=== PATIENT | female | born 1970 | race Caucasian/White ===

== ENCOUNTER → 2016-09-05 | Outpatient (CLI) | payer BC ==
[~2016-09-05] MED LIST: BCP PO; DOCU100C37 PO; HYDR-3816 PO; IBUP-1773 PO; SIME80TA16 PO; ZOLP10TA PO
--- NOTE | 2016-09-05 13:08 | Diagnostic Imaging Report ---
EXAMINATION: Transabdominal and transvaginal pelvic ultrasound. INDICATION: Menorrhagia. FINDINGS: The uterus is 6.9 x 5.3 x 4.5 cm. The myometrium is heterogenous with no discrete mass. The myometrium is not well seen with areas of fluid noted focally. The approximate measurement of the endometrium is 1.3 cm. The adnexa are obscured by bowel gas. IMPRESSION: Focal areas of fluid are seen in the endometrium which is not well visualized on this exam. These could be related to blood clots. An underlying endometrial polyp or malignancy is perhaps less likely but cannot be entirely excluded based on this exam. Also, significant heterogeneity in the myometrium may relate to fibroids without a discrete visible mass or adenomyosis. Correlate clinically. Dictated by: Dictated on workstation # [id number]
== END ==
LOC: RAD 09:25
PROVIDERS: ATTEND Nurse Practitioner
DX: N92.0 Excessive and frequent menstruation with regular cycle (principal); N93.8 Other specified abnormal uterine and vaginal bleeding; N94.6 Dysmenorrhea, unspecified
CPT/HCPCS: 76830; 76856

== ENCOUNTER → 2016-09-19 | Outpatient (CLI) | payer BC ==
--- NOTE | 2016-09-19 13:51 | Diagnostic Imaging Report ---
Bilateral screening mammogram The current study was also evaluated with a Computer Aided Detection (CAD) system. INDICATION: Screening. No current complaints stated on the questionnaire. COMPARISON: 09/18/2015. FINDINGS: The breasts are composed of heterogeneously dense parenchyma which may decrease mammographic sensitivity. There are benign-appearing calcifications noted in both breasts, stable from prior exams. A central right breast nodule with well-circumscribed margins, stable from multiple prior exams, is again noted without significant change compatible with benign etiology. Allowing for technique and positional differences, no suspicious change is seen. IMPRESSION: No significant change. ACR BI-RADS Category 2: Benign findings. Result letter will be mailed to the patient. Note: At least 10% of breast cancer is not imaged by mammography. Dictated by: Dictated on workstation # [id number]
== END ==
LOC: RAD 07:25
PROVIDERS: ATTEND Nurse Practitioner
DX: Z12.31 Encounter for screening mammogram for malignant neoplasm of breast (principal)
CPT/HCPCS: 77067

== ENCOUNTER 2016-10-05 08:20 | Outpatient (CLI) | payer BC ==
[~2016-10-05] VITALS: Ht 167.6 cm; Wt 107.5 kg
[2016-10-05] MEDS ORDERED: ZOLP10TA PO (08:31)
[2016-10-05] MEDS ORDERED: BCP PO (08:31)
[2016-10-05 08:39] VITALS: BP 145/85
[2016-10-05 09:12] LABS: BASOPHILS % (AUTO) 0 % (0-10); EOSINOPHILS # (AUTO) 0.2 10^3/uL (0.0-0.3); EOSINOPHILS % (AUTO) 3 % (0-10); LYMPHOCYTES # (AUTO) 1.6 X 10^3 (1.0-4.0); LYMPHOCYTES % (AUTO) 24 % (12-44); MEAN CORPUSCULAR HEMOGLOBIN 30 PG (25-34); MEAN CORPUSCULAR HGB CONC 33 G/DL (32-36); MEAN CORPUSCULAR VOLUME 90 FL (80-99); MEAN PLATELET VOLUME 9.5 FL (7.4-10.4); MONOCYTES # (AUTO) 0.6 X 10^3 (0.0-1.0); MONOCYTES % (AUTO) 8 % (0-12); NEUTROPHILS # (AUTO) 4.5 X 10^3 (1.8-7.8); NEUTROPHILS % (AUTO) 65 % (42-75); PLATELET COUNT 447 10^3/uL (130-400); RED BLOOD COUNT 4.71 10^6/uL (4.35-5.85); RED CELL DISTRIBUTION WIDTH 14.1 % (10.0-14.5)
[2016-10-13] MEDS ORDERED: IBUP-1773 PO (10:20)
[2016-10-13] MEDS ORDERED: HYDR-3816 PO (10:20)
[2016-10-13] MEDS ORDERED: DOCU100C37 PO (10:20)
[2016-10-13] MEDS ORDERED: SIME80TA16 PO (10:20)
== END 2016-10-05 08:50 | disposition home or self-care (01) ==
LOC: PREOP 08:20
PROVIDERS: ATTEND Obstetrics & Gynecology
DX: Z01.812 Encounter for preprocedural laboratory examination (principal); Z11.2 Encounter for screening for other bacterial diseases; N81.4 Uterovaginal prolapse, unspecified; R10.2 Pelvic and perineal pain; N93.9 Abnormal uterine and vaginal bleeding, unspecified
CPT/HCPCS: 36415; 85025; 86850; 86900; 86901; 87081

== ENCOUNTER 2016-10-13 06:56 | Day surgery (SDC) | payer BC ==
[2016-10-13] VITALS (8 sets, daily range): BP systolic 105–141; BP diastolic 51–85
[~2016-10-13] VITALS: Ht 167.6 cm; Wt 107.5 kg
[~2016-10-13 06:56] MED LIST changes: -DOCU100C37 PO; -HYDR-3816 PO; -IBUP-1773 PO; -SIME80TA16 PO
[2016-10-13] MEDS: LACTATED RINGERS 1,000 ML IV PRN ×2 (07:15→09:15)
[2016-10-13] MEDS ORDERED: metroNIDAZOLE 500MG/100ML IVPB 100 ML ONE (07:19)
[2016-10-13] MEDS ORDERED: CLINDAMYCIN 900 MG/50 ML IVPB 50 ML IV ONE ×2 (07:19→07:30)
[2016-10-13] MEDS ORDERED: metroNIDAZOLE 500 MG/100 ML IVPB (PRE-MIX) IV ONE (07:30)
[2016-10-13] MEDS ORDERED: BUPIVACAINE 0.25% 30 ML (SENSORCAINE) VIAL ONE (07:30)
[2016-10-13] MEDS ORDERED: LIDOCAINE PF 2% 10 ML (XYLOCAINE) AMP ONE (08:12)
[2016-10-13] MEDS ORDERED: MIDAZOLAM 2 MG/2 ML (VERSED) VIAL ONE (08:12)
[2016-10-13] MEDS ORDERED: SEVOFLURANE (ULTANE) 15 ML INHAL SOLN ONE ×3 (08:12→10:07)
[2016-10-13] MEDS ORDERED: ROCURONIUM 50 MG/5 ML (ZEMURON) VIAL IV ONE ×2 (08:12→09:49)
[2016-10-13] MEDS ORDERED: LACTATED RINGERS 1,000 ML IV ONE (08:12)
[2016-10-13] MEDS ORDERED: ONDANSETRON 4 MG/2 ML (SDV) Z0FRAN ONE (08:12)
[2016-10-13] MEDS ORDERED: DEXAMETHASONE PF 10 MG/ML (DECADRON) VIAL ONE (08:12)
[2016-10-13] MEDS ORDERED: fentaNYL INJECTION 250 MCG/5 ML AMP ONE (08:12)
[2016-10-13] MEDS ORDERED: proPOfol 200 MG/20 ML (DIPRIVAN) VIAL IV ONE (08:12)
--- NOTE | 2016-10-13 08:16 | Progress Note-Pre Operative ---
Pre-Operative Progress Note H&P Reviewed The H&P was reviewed, patient examined and no changes noted. Date H&P Reviewed: October 13, 2016 Time H&P Reviewed: 08:10 Pre-Operative Diagnosis: Pelvic pressure, Uterine prolapse, AUB PETE SHEPARD DO October 13, 2016 8:16 am
[2016-10-13] MEDS ORDERED: ANTACID SUSP 30 ML UDC (MYLANTA) PO PRN (08:30)
[2016-10-13] MEDS ORDERED: ZOLPIDEM 5 MG (AMBIEN) TAB PO PRN (08:30)
[2016-10-13] MEDS ORDERED: CHLORASEPTIC LOZENGE MM PRN (08:30)
[2016-10-13] MEDS ORDERED: DOCUSATE SODIUM 100 MG (COLACE) CAP PO PRN (08:30)
[2016-10-13] MEDS ORDERED: HYDROcodone/APAP 7.5 MG/325 MG (LORTAB, LORCET PLUS) TABLET PO PRN (08:30)
[2016-10-13] MEDS ORDERED: SIMETHICONE 80 MG (MYLICON) CHEW PO PRN (08:30)
[2016-10-13] MEDS ORDERED: ONDANSETRON 4 MG/2 ML (SDV) Z0FRAN IV PRN (08:30)
[2016-10-13] MEDS ORDERED: NEOSTIGMINE (BLOXIVERZ ) 1 MG/1ML 10 ML VIAL ONE (09:55)
[2016-10-13] MEDS ORDERED: GLYCOPYRROLATE 0.2 MG/ML (ROBINUL) 2 ML VIAL ONE (09:55)
[2016-10-13] MEDS ORDERED: morphine INJ 10 MG/ML 1ML (SYR OR VIAL) ONE (09:58)
[2016-10-13] MEDS ORDERED: HYDR-3816 PO (10:20)
[2016-10-13] MEDS ORDERED: SIME80TA16 PO (10:20)
[2016-10-13] MEDS ORDERED: DOCU100C37 PO (10:20)
[2016-10-13] MEDS ORDERED: IBUP-1773 PO (10:20)
--- NOTE | 2016-10-13 10:22 | Discharge Inst-Women's Service ---
Discharge Inst-Women's Serv Depart Medication/Instructions New, Converted or Re-Newed RX: RX on Chart Consults/Follow Up Additional Follow Up: Yes Activity Activity: Activity as Tolerated Driving Instructions: No Driving for 1 Week NO SMOKING: NO SMOKING Nothing Inside Vagina: No Douching, No [place], No Tampons Diet Discharge Diet: No Restrictions Symptoms to Report to : Bleeding Excessive, Pain Increased, Fever Over 101 Degrees F, Vaginal Bleeding Increase, Questions/Concerns For Any Problems or Questions: Contact Your Physician Skin/Wound Care Infection Signs and Symptoms: Increased Redness, Foul Odor of Wound, Increased Drainage, Skin Itchy or Has a Rash, Increased Swelling, Temperature Above 101 F Operative Area Clean and Dry: Keep Incision Clean/Dry, You May Remove Bandage Stitches/[place]/Dermabond: Dermabond, Care of Stitches Bathing Instructions: PETE Jain DO October 13, 2016 10:22
[2016-10-13] MEDS ORDERED: ONDANSETRON 4 MG/2 ML (SDV) Z0FRAN IVP PRN (10:30)
[2016-10-13] MEDS ORDERED: fentaNYL INJECTION 100 MCG/2 ML AMP IVP PRN (10:30)
[2016-10-13] MEDS: KETOROLAC 30 MG/ML VIAL IV PRN ×3 (10:32→21:24)
[2016-10-13] MEDS: morphine INJ 10 MG/ML 1ML (SYR OR VIAL) IVP PRN ×2 (10:38→10:45)
[2016-10-13] MEDS: LACTATED RINGERS 1,000 ML IV SCH ×2 (13:57→21:35)
[2016-10-14 00:45] VITALS: BP 124/71
[2016-10-14] MEDS ORDERED: IBUPROFEN 600 MG (MOTRIN) TAB PO PRN (01:00)
--- NOTE | 2016-10-14 04:32 | OPERATIVE REPORT ---
DATE OF SERVICE: PREOPERATIVE DIAGNOSES: 1. A 45-year-old female with chronic pelvic pressure. 2. Uterine prolapse. 3. Abnormal uterine bleeding. POSTOPERATIVE DIAGNOSES: 1. A 45-year-old female with chronic pelvic pressure. 2. Uterine prolapse. 3. Abnormal uterine bleeding. PROCEDURE: Robotic-assisted total laparoscopic hysterectomy with bilateral salpingectomies. SURGEON: Dr. Marcos Alexis. DUMPSTER DRIVER: Mona Pena RN, [employer] Field Technician ANESTHESIA: General endotracheal. ESTIMATED BLOOD LOSS: 30 mL. URINE OUTPUT: 76 mL clear throughout procedure. FLUIDS 1500 mL lactated Ringer's. FINDINGS: A moderately descended uterus down to the level of the vaginal introitus with a small amount of cystocele, approximately grade II cystocele down the midline, no rectocele noted, grossly normal-appearing uterus, bilateral fallopian tubes and ovaries. SPECIMENS SENT: Uterus, bilateral fallopian tubes. INDICATIONS FOR PROCEDURE: This 45-year-old female is a patient that was sent to me by Susie Millan, our nurse practitioner, for ongoing issues with pelvic pressure and discomfort. She also has abnormal uterine bleeding that was not managed with more conservative options. She was sent to me after all of her more conservative options had been exhausted with Susie Millan and she was requesting our consultation for hysterectomy. Risks of this procedure was discussed with the patient in detail including risk of bleeding, infection, damage to any surrounding structures including, but not limited to bowel, bladder, ureter, kidneys, risk for need of reoperation, risk for blood transfusion, risk from anesthesia, possibility of laparotomy and even were all discussed with the patient. I also discussed more conservative options again with the patient. After all of their questions were answered, consent obtained in the preop area and the patient was taken to the operating room. OPERATIVE REPORT IN DETAIL: Once in the operating room, general anesthesia was found to be adequate. She was placed in the dorsal lithotomy position, prepped and draped in the normal sterile fashion. I first examined the patient under anesthesia after a Ruiz catheter was placed using sterile technique. The uterus was not enlarged and fully immobile. There is a moderate amount of uterine prolapse I described in my findings above. I then placed a weighted speculum to the patient's vagina. A right angle retractor is used to visualize the cervix. It was grasped at the 12 o'clock position using a single-tooth tenaculum. I then placed 0 Vicryl suture through the anterior lip of the cervix and used this as my retraction point and removed my single-tooth tenaculum. I then gently sounded the uterine cavity which was found to be 8 cm. I then slipped an 8 cm MONIQUE uterine manipulator tip and a 3-1/2 cm colpotomy ring, placed this within the endometrial canal, deploying the balloon and advancing the colpotomy ring around the vaginal fornix. Once this was in place, excellent bimanual retraction is noted on exam. I then performed a change of gloves and turned my attention to the abdomen where I supraumbilically infiltrated this area using 0.25% Marcaine. I made an 8 mm incision and directed a Veress needle into this incision until intraperitoneal placement is confirmed using the saline drop test. Then we proceeded with insufflation using CO2 gas and an opening pressure of 5 mmHg is noted. I proceeded to a maximum pressure of 15 mmHg, at which point I removed the Veress needle and introduced a 5 mm blunt-tip da Eunice camera and trocar. Once this was in place I am able to confirm intraperitoneal placement. I placed the patient in steep Trendelenburg and made to visualize all the pelvic anatomy described in my findings above. I placed lateral trocars approximately 8 cm lateral to my supraumbilical trocar. These were 8 mm incisions which were infiltrated using 0.25% Marcaine. The incisions were made with a knife and the trocar was inserted under direct visualization of the laparoscope. Once these were in place, I bring in the da Eunice robot and docked it in the appropriate fashion. I have trouble maintaining insufflation with the 8 mm camera trocar. I thus replace it with a 12 mm camera trocar and perform the robotic case in this fashion, still using an 8 mm robotic scope. Once the da Eunice robot is docked I placed the vessel sealer in the left hand and monopolar anjana in the right hand. I performed the following dissection bilaterally. I started at the uteroovarian ligament. I bipolar cauterized this and transected using the vessel sealer. I then created a window in the mesosalpinx and take this laterally using monopolar anjana. This amputates the fallopian tube away from its surrounding blood supply. I then grasped the round ligament, bipolar cauterized this and transected using the vessel sealer. I am then able to grasp the entire broad ligament, transecting and bipolar cauterizing it using the vessel sealer down to the level of the lower uterine segment, at which point I out the anterior and posterior leaflets, anterior leaflets taking down to the anterior vaginal fornix and posterior leaflets taking down to the posterior vaginal fornix. This allows me to skeletonize off the uterine vessels laterally which are bipolar cauterized and transected using the vessel sealer. I then perform a colpotomy at 12 o'clock using monopolar anjana and take this circumferentially, amputating the cervix away from the vaginal fornix. The uterus, bilateral fallopian tubes are then removed through the vagina. I then proceed with closing the vaginal cuff using 2-0 Vicryl suture in a [id number] fashion in the lateral vaginal apices colposuspension them to the uterosacral ligaments. I then closed the remainder of the vaginal cuff using 2-0 V-Loc in a running fashion. There is no active bleeding noted from my dissection planes at which point I undocked the da Eunice robot and proceeded with the remainder of the case laparoscopically. I copiously irrigated the pelvis using normal saline. There was no active bleeding noted from any of my dissection planes once again. I placed Floseal hemostatic agent over all of my planes of dissection and then had the patient take off of deep Trendelenburg at which point I removed the lateral trocars under direct visualization of the laparoscope. The supraumbilical trocar was left in place to release insufflation and to introduce 10 mL of 0.25% Marcaine for postoperative pain management. I then removed this trocar as well. I closed the fascia of this trocar using 0 Vicryl suture in a simple fashion. The skin is then reapproximated using 4-0 Monocryl in interrupted subcuticular stitches. Dermabond is applied to the incision and bandages were placed over these as well. The Ruiz catheter was left in place. The patient tolerated the procedure well and sent to the recovery area in stable condition. Lap count, sponge count was correct at the end of the procedure. Instrument count was correct as well. Two grams of Ancef and 500 mg of Flagyl were given preoperatively for infection prophylaxis. Job ID: [id number] DocumentID: [id number] Dictated Date: 10/13/2016 10:30:38 Casing Grader Date: 10/14/2016 04:31:44 Dictated By: DO BRIANNA BACK
[2016-10-14 05:45] VITALS: BP 132/77
[2016-10-14 07:44] VITALS: BP 120/72
--- NOTE | 2016-10-14 08:10 | Progress Note-Standard ---
Standard Progress Note Progress Notes/Assess & Plan Date Seen 10/14/16 Assess & Plan/Chief Complaint POD#1 Pt denies complaints. N/V ceased after 2300 last night. Has voided after tatum removed. Ambulating. Tolerating PO intake. Pain controlled. Vital Sign - Last 12Hours 10/13/16 10/14/16 10/14/16 10/14/16 21:25 00:45 05:45 07:44 Temp 97.8 98.4 98.2 98.2 Pulse 72 78 69 89 Resp 18 18 18 16 B/P (MAP) 128/70 124/71 132/77 120/72 Pulse Ox 100 98 97 98 O2 Delivery Room Air Room Air Room Air Room Air Intake and Output 10/14/16 00:00 Intake Total 4300 ml Output Total 850 ml Balance 3450 ml 2300 mL UOP - not correct above Gen NAD Abd soft appropriately ttp no new labs A/P: 45 y/o s/p RATLH/bilat salpingectomy by Dr. Alexis POD#1 D/c home with instructions as per Dr. Alexis, f/u as scheduled SYED BISHOP MD October 14, 2016 08:10
== END 2016-10-14 09:50 | disposition home or self-care (01) ==
LOC: SDC 06:56 → WS 11:28 → SDC 10-14 09:50
PROVIDERS: ATTEND Obstetrics & Gynecology
DX: N80.0 Endometriosis of uterus (principal); N81.11 Cystocele, midline; N93.9 Abnormal uterine and vaginal bleeding, unspecified
CPT/HCPCS: 84703; 88307; 94664; 96361; 96375; 96376

== ENCOUNTER → 2017-09-29 | Outpatient (CLI) | payer BC ==
[~2017-09-29] MED LIST changes: +DOCU100C37 PO; +HYDR-34 PO; +IBUP-1773 PO; +SIME80TA16 PO
--- NOTE | 2017-09-29 16:21 | Diagnostic Imaging Report ---
INDICATION: Routine screening. Comparison is made with prior study from 09/19/2016 and 09/18/2015. The current study was also evaluated with a Computer Aided Detection (CAD) system. FINDINGS: Both breasts show moderate parenchyma heterogeneity and increased density, limiting the sensitivity of mammography. Circumscribed nodular densities in the central right breast and upper left breast appear stable and most consistent with benign etiologies. There are benign calcifications bilaterally. The axillae are unremarkable. No spiculated mass or malignant-appearing microcalcifications are seen. IMPRESSION: No mammographic features suspicious for malignancy are identified. ACR BI-RADS Category 2: Benign findings. Result letter will be mailed to the patient. Note: At least 10% of breast cancer is not imaged by mammography. Dictated by: Dictated on workstation # [id number]
== END ==
LOC: RAD 07:57
PROVIDERS: ATTEND Obstetrics & Gynecology
DX: Z12.31 Encounter for screening mammogram for malignant neoplasm of breast (principal)
CPT/HCPCS: 77067

== ENCOUNTER → 2018-10-08 | Outpatient (CLI) | payer BC ==
--- NOTE | 2018-10-08 12:03 | Diagnostic Imaging Report ---
INDICATION: Screening The current study was also evaluated with a Computer Aided Detection (CAD) system. 3-D Tomographic imaging was also performed. FINDINGS: Comparison made with prior examination from 09/29/2017, 09/19/2016 09/18/2015 There is unchanged dystrophic calcification in the central left breast. There are a few other benign type calcifications. There is no new dominant mass, spiculated lesion or suspicious calcification is identified. Skin, nipples and axilla are unremarkable. IMPRESSION: Category 2 benign. ACR BI-RADS Category 2: Benign findings. Result letter will be mailed to the patient. Note: At least 10% of breast cancer is not imaged by mammography. Dictated by: Dictated on workstation # [id number]
== END ==
LOC: RAD 08:05
PROVIDERS: ATTEND Obstetrics & Gynecology
DX: Z12.31 Encounter for screening mammogram for malignant neoplasm of breast (principal)
CPT/HCPCS: 77067

== ENCOUNTER → 2019-11-19 | Outpatient (CLI) | payer BC ==
--- NOTE | 2019-11-19 13:56 | Diagnostic Imaging Report ---
INDICATION: Routine screening. COMPARISON: 10/08/2018 and 09/29/2017. TECHNIQUE: 2D and 3D bilateral screening mammography was performed with CAD. FINDINGS: Both breasts remain heterogeneously dense, limiting the sensitivity of mammography. Benign nodular densities and benign calcifications are again noted bilaterally and appear stable. No new mass or malignant appearing microcalcifications are seen. The axillae are unremarkable. IMPRESSION: No mammographic features suspicious for malignancy are identified. ACR BI-RADS Category 2: Benign findings. Result letter will be mailed to the patient. Note: At least 10% of breast cancer is not imaged by mammography. Dictated by: Dictated on workstation # [id number]
== END ==
LOC: RAD 08:25
PROVIDERS: ATTEND Obstetrics & Gynecology
DX: Z12.31 Encounter for screening mammogram for malignant neoplasm of breast (principal)
CPT/HCPCS: 77063; 77067

== ENCOUNTER → 2020-12-16 | Outpatient (CLI) | payer BC ==
--- NOTE | 2020-12-16 11:15 | Diagnostic Imaging Report ---
Indication: Routine screening. Comparison is made with prior mammogram 11/19/2019 and 10/08/2018. 2-D and 3-D bilateral screening mammography was performed with CAD. Both breasts are heterogeneously dense, limiting the sensitivity of mammography. Previously noted benign nodules in both breasts appear stable. There is benign calcifications bilaterally. No new mass or malignant appearing microcalcifications are seen. Axillae are unremarkable. IMPRESSION: BI-RADS Category 2 No mammographic features suspicious for malignancy are identified. ACR BI-RADS Category 2: Benign findings. Result letter will be mailed to the patient. Note: At least 10% of breast cancer is not imaged by mammography. Dictated by: Dictated on workstation # [id number]
== END ==
LOC: RAD 07:48
PROVIDERS: ATTEND Obstetrics & Gynecology
DX: Z12.31 Encounter for screening mammogram for malignant neoplasm of breast (principal)
CPT/HCPCS: 77063; 77067

== ENCOUNTER → 2021-12-27 | Outpatient (CLI) | payer BC ==
--- NOTE | 2021-12-27 12:01 | Diagnostic Imaging Report ---
INDICATION: Routine screening. Comparison is made with prior mammogram from 12/16/2020 and 11/19/2019. 2-D and 3-D bilateral screening mammography was performed with CAD. Both breasts are heterogeneously dense, limiting the sensitivity of mammography. The overall parenchymal pattern appears to be stable. A benign nodule on the right is stable. There are coarse calcifications on the left that are stable. No new mass is detected. No malignant-appearing microcalcifications are identified. Axillae are unremarkable. IMPRESSION: No mammographic features suspicious for malignancy are identified. ACR BI-RADS Category 2: Benign findings. Result letter will be mailed to the patient. Note: At least 10% of breast cancer is not imaged by mammography. BI-RADS Category 2 Dictated by: Dictated on workstation # [id number]
== END ==
LOC: RAD 08:15
PROVIDERS: ATTEND Obstetrics & Gynecology
DX: Z12.31 Encounter for screening mammogram for malignant neoplasm of breast (principal)
CPT/HCPCS: 77063; 77067